=== PATIENT | male | born 1975 | race Caucasian/White ===

== ENCOUNTER 2016-08-16 04:20 | Emergency (ER) | payer OTHER | END 2016-08-16 05:35 | disposition home or self-care (01) | LOC: D.ER 04:20 | DX: M25.512 Pain in left shoulder (principal); F17.200 Nicotine dependence, unspecified, uncomplicated; I45.10 Unspecified right bundle-branch block ==

== ENCOUNTER 2016-08-17 21:10 | Emergency (ER) | payer OTHER | END 2016-08-18 00:50 | disposition home or self-care (01) | LOC: D.ER 21:10 | DX: M54.12 Radiculopathy, cervical region (principal); F17.200 Nicotine dependence, unspecified, uncomplicated ==